=== PATIENT | female | born 1990 | race Caucasian/White ===

== ENCOUNTER 2017-03-13 21:14 | Emergency (ER) | END 2017-03-14 04:18 | disposition home or self-care (01) ==

== ENCOUNTER 2017-12-02 13:16 | Emergency (ER) | END 2017-12-02 18:08 | disposition left against medical advice (07) ==

== ENCOUNTER 2017-12-31 10:54 | Emergency (ER) | END 2017-12-31 14:45 | disposition home or self-care (01) ==

== ENCOUNTER 2018-06-10 19:32 | Inpatient (IN) | payer OTHER ==
[~2018-06-10] VITALS: Ht 152.4 cm; Wt 75.8 kg
[~2018-06-10 19:32] MED LIST: DOXY100T20 PO; IBUP-1542 PO; METR500T PO; PREN1TAB49 PO
[2018-06-10 20:39] VITALS: BP 112/60; PULSE 90; RESP 16
[2018-06-10] MEDS ORDERED: ACET500C5 PO (20:59)
[2018-06-10] MEDS ORDERED: PREN-19 PO (20:59)
[2018-06-10] MEDS ORDERED: ACETAMINOPHEN 325 MG TAB PO PRN (22:00)
[2018-06-10] MEDS ORDERED: AL HYDROX/MG HYDROX/SIMETH 30 ML CUP PO PRN (22:00)
--- NOTE | 2018-06-10 22:09 | HP ---
Date/Time of Note Date/Time of Note DATE: 06/10/18 TIME: 22:05 OB - History Hx of Present Free Text/Dictation 27-year-old 3 para 2 at 34 weeks and 4 days of gestation with estimated date of delivery July 17, 2018 Patient presents with chief complaint of vaginal pain and occasional contr actions She reports positive movement, denies any vaginal bleeding or leaking fluid Patient past obstetrical history significant for x2 Estimated Due Date: Jul 17, 2018 : 3 Para: 2 Care: Good Care Past Family/Social History * Past Medical, Surgical, Family and Obstetric Histories reviewed from chart. OB Admission Exam Vital Signs Vital Signs Vital Signs Date Temp Pulse Resp B/P (MAP) Pulse Ox O2 O2 Flow FiO2 Time Delivery Rate 06/10/18 98.7 90 16 112/60 Room Air 20:39 (77) Physical Exam HEENT: WNL Heart: Rhythm Normal Lungs: Clear, Equal Abdomen: WNL Extremities: Normal Reflexes: Normal Contractions on Admission: >10 Minutes Apart Last 72 hours Lab Results Urine Results - 72 Hrs Test 06/10/18 15:30 Urine Color YELLOW (YELLOW) Urine Clarity SLIGHTLY CLOUDY (CLEAR) Urine pH 5.0 (5.0-9.0) Urine Specific [place] 1.014 (1.003-1.030) Urine Ketones NEGATIVE mg/dL (NEGATIVE) Urine Nitrite NEGATIVE mg/dL (NEGATIVE) Urine Bilirubin NEGATIVE mg/dL (NEGATIVE) Urine Urobilinogen NEGATIVE mg/dL (NEGATIVE) Urine Leukocyte Esterase NEGATIVE Donn/ul Urine Microscopic RBC 0 /HPF (0-5) Urine Microscopic WBC 1 /HPF (0-5) Urine Hemoglobin NEGATIVE mg/dL (NEGATIVE) Urine Glucose NEGATIVE mg/dL (NEGATIVE) Urine Total Protein NEGATIVE mg/dl (NEGATIVE) PROCEDURE: US biophysical profile. CLINICAL INDICATION: Pain. well-being. TECHNIQUE: Multiple sonographic images of the uterus were obtained. The images were reviewed on a PACS workstation. COMPARISON: US PELVIS 12/31/2017 FINDINGS: There is a single live intrauterine gestation. heart rate is 132 beats per minute. The position is cephalic. The placenta is right lateral, grade 1-2. The ELISE is 10.9 cm. The cervical length measures 1.1 cm. Breathing Movement: 2 Gross Body Movement: 2 Tone: 2 Qualitative Amniotic Fluid Volume: 2 TOTAL: 8 IMPRESSION: 1. Single viable intrauterine gestation. 2. Biophysical profile = /8. 3. ELISE = 10.9 cm. RPTAT: HFN .Rupinder Patel MD, MD Date Time Electronically viewed and signed by .Rupinder Patel MD, on 06/10/2018 21:43 .N/ CC: LI DINH MD [phone] OB Assessment/Plan Reason for admission: other (Cervical shortening 1.1 cm) Other plan: Admit to antepartum Betamethasone for lung maturity Perinatology consultation Copies To: CC: BENNETT JIMENEZ ; LI DINH MD Jun 10, 2018 22:09
[2018-06-11] MEDS: BETAMET NA PHOS/AC(6 MG/ML) 2 ML INJ SYG IM SCH ×2 (01:46→22:00)
--- NOTE | 2018-06-11 07:15 | TRIAGE ---
OB Triage Datetime Report Generated by CPN: 06/11/2018 07:15 Datetime: 06/11/2018 05:20 Stage of : Antepartum Datetime: 06/10/2018 23:06 Assessment Type: Admission Assessment Vaginal Bleeding: None Maternal Assessment Level of Consciousness: Fully Conscious DTR's/Clonus: DTRs 2+; No Clonus Headache: Denies Blurred Vision: No Respiratory Effort: Unlabored; Regular Rhythm; Equal Expansion Breath Sounds, Left: Clear and Equal Breath Sounds, Right: Clear and Equal Nausea/Vomiting: Denies RUQ Epigastric Pain: Denies Lower Extremities Edema: None Degree: None Upper Extremities Edema: None Facial Edema: None Fall Risk Assessment History of Falling: (0) No Secondary Diagnosis: (0) No Ambulatory Aid: (0) Bedrest/Nurse Assist IV Therapy: (0) No Gait: (0) Normal/Bedrest/Immobile Mental Status: (0) Oriented to Own Ability Fall Score: 0 Fall Risk Score Definition: No Risk: No action required Pain Assessment Pain Scale: 6 Pain Presence: Intermittent Pain Type: Sharp Pain Location: Perineum Pain Goal: 3 Datetime: 06/10/2018 21:56 Vaginal Exam Membrane Status: Intact Datetime: 06/10/2018 19:58 Time of Arrival: 06/10/2018 19:24 EGA: 34.4 Arrived By: Wheelchair Arrived From: Home Chief Complaint: hx c/s x2 w/ c/o vaginal pain x3 days seb when lying down Movement: Present Contractions: Denies/Absent Rupture of Membranes: Denies Vaginal Bleeding: None Vaginal Discharge: Denies Recent Sexual Intercouse: Denies Abdominal Trauma: Not Applicable Patient Complaints: Other Time Provider Notified: 06/10/2018 19:50 Provider Notified: Dr Flynn Initial Plan: EFM,UA Datetime: 06/10/2018 19:46 Stage of : OB Triage Maternal Assessment Level of Consciousness: Fully Conscious Headache: Denies Blurred Vision: No Nausea/Vomiting: Denies RUQ Epigastric Pain: Denies Facial Edema: None Labor Evaluation Monitor Mode: External Resting Tone [place]: Relaxed Heart Rate FHR Baseline Rate: 140 Monitor Mode: External US Pain Presence: Intermittent Pain Type: Sharp; Stabbing Pain Assessment Comments: VAGINAL PAIN
[2018-06-11] MEDS: FERROUS SULFATE (EC) 325 MG TAB PO SCH (10:20)
[2018-06-11] MEDS: PRENATAL VITAMIN PO SCH (10:20)
--- NOTE | 2018-06-11 15:33 | PN ---
Date/Time of Note Date/Time of Note DATE: 06/11/18 TIME: 15:27 OB Subjective Subjective Subjective Patient seen and examined. She states good movement. She denies nausea, vomiting, shortness of breath, chest pain, abdominal pain between contractions, headache, visual changes, vaginal bleeding or LOF. OB Objective Objective Objective General: Patient appears well, alert and oriented, NAD, appropriate mood and affect ABD: gravid, soft, non-tender. Back: No CVA tenderness (B/L) LE: Mild edema. No clubbing, cyanosis, edema, thigh or calf tenderness bilaterally FHT: 135 bpm , moderate variability with acceleration, no deceleration-category I Contractions: None OB Assessment/Plan Other plan: 37 year-old G [id number] with 2 previous delivery and short cervix (1.1 cm) at 34 weeks and 5 days - FHR: Reassuring. No sign of metabolic acidosis- Category I - Continuous EFM, toco - She has received first dose of betamethasone at 01:48 this morning, will receive second dose tomorrow - U/A, U/C - Rectovaginal GBS culture - Continue current management - Blood type B+, rubella immune BENNETT JIMENEZ Jun 11, 2018 15:33
[2018-06-12] MEDS: FERROUS SULFATE (EC) 325 MG TAB PO SCH (10:10)
[2018-06-12] MEDS: PRENATAL VITAMIN PO SCH (10:10)
[2018-06-12] MEDS: BETAMET NA PHOS/AC(6 MG/ML) 2 ML INJ SYG IM SCH (11:22)
--- NOTE | 2018-06-12 20:47 | DS ---
Date/Time of Note Date/Time of Note DATE: 06/12/18 TIME: 20:41 Obstetrical Discharge Record Final Diagnosis Final Diagnosis: not delivered Other Final Diagnosis 37 year-old G [id number] with 2 previous delivery and short cervix (1.1 cm) at 34 weeks and 6 days. FHR: Reassuring. No sign of metabolic acidosis- Category I. She has no uterine contractions. She received 2 dose of betametha sone, last dose was this morning. She decided to sign AMA and leave the hospital. Risks of delivery including but not limited to cardiac, respiratory, retinopathic, hyperbilirubinemia, hypoglycemia, delivery in the setting of no neonatology available, , maternal morbidity, uterine rupture and maternal discussed with patient in detail. She expressed un derstanding, repeat the risks and signed AMA and left the hospital. Condition on Discharge Physical Assessment Voiding: Yes Bowel Movement: Yes Breast: Soft, non-tender Fundus: Firm Calf Tenderness: No Patient Condition: Stable BENNETT JIMENEZ Jun 12, 2018 20:47
== END 2018-06-12 14:50 | disposition left against medical advice (07) | DRG 833 ==
LOC: OBT 19:32 → L-D 19:33 → OBT 21:50 → L-D 21:50
PROVIDERS: ADMIT Obstetrics & Gynecology; ATTEND Obstetrics & Gynecology
DX: O26.873 Cervical shortening, third trimester (principal); O62.9 Abnormality of forces of labor, unspecified; O34.219 Maternal care for unspecified type scar from previous cesarean delivery; Z3A.34 34 weeks gestation of pregnancy
CPT/HCPCS: 76817; 76818; 81001; 81003; 85025; 85610; 85730; 86592; 86850; 86900; 86901; 87081; 87086; G0463; J0702